=== PATIENT | female | born 1950 | race American Indian/Alaskan Native ===

== ENCOUNTER 2018-07-10 08:27 | Emergency (ER) | payer OTHER ==
[~2018-07-10 08:27] MED LIST: Iopamidol 612 MG/ML 100 ML Bottle IVPUSH ONE
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
[2018-07-10 08:30] LABS: ANION GAP 13.4; CHLORIDE,CL 106 mmol/L (101-111); SODIUM,NA 139 mmol/L (135-145)
[2018-07-10] MEDS ORDERED: MVI, Adult with Vitamin K 10 ML, Folic Acid 1 MG, Thiamine 100 MG in Lactated Ringers 1... IV ONE ×4 (08:36)
[2018-07-10] MEDS ORDERED: Acetaminophen 325 MG Tab PO ONE (09:44)
--- NOTE | 2018-07-12 16:28 | EKG ---
07/10/2018 - MELVINA BRIONES - TIME: 8:00 a.m. FINDINGS: Sinus rhythm at 83, borderline T-wave abnormalities. [facility] /[id number]
== END 2018-07-10 10:18 | disposition home or self-care (01) ==
LOC: DL.ED 08:27
DX: S22.32XA Fracture of one rib, left side, initial encounter for closed fracture (principal); F10.129 Alcohol abuse with intoxication, unspecified; I10 Essential (primary) hypertension; J44.9 Chronic obstructive pulmonary disease, unspecified; K21.9 Gastro-esophageal reflux disease without esophagitis; N18.9 Chronic kidney disease, unspecified; E11.22 Type 2 diabetes mellitus with diabetic chronic kidney disease; V87.7XXA Person injured in collision between other specified motor vehicles (traffic), initial encounter; Y90.8 Blood alcohol level of 240 mg/100 ml or more; Z79.899 Other long term (current) drug therapy; Z79.82 Long term (current) use of aspirin; V47.6XXA Car passenger injured in collision with fixed or stationary object in traffic accident, initial encounter; Z88.6 Allergy status to analgesic agent; Z88.5 Allergy status to narcotic agent; Z88.0 Allergy status to penicillin
CPT/HCPCS: 36415; 70450; 71260; 72125; 74177; 80053; 80305; 81001; 84484; 85025; 96365; 99285; A9270; G0480; J3411; J7120; Q9967; J3490

== ENCOUNTER 2019-01-15 20:37 | Emergency (ER) | payer MEDICAID, OTHER ==
[2019-01-15 20:49] VITALS: BP 137/77
--- NOTE | 2019-01-15 21:08 | EDM.PDOC ---
ED HPI GENERAL MEDICAL PROBLEM - General Chief Complaint: Respiratory Problem Stated Complaint: SINUS HEADACHE Time Seen by Provider: 01/15/19 21:00 Source of Information: Reports: Patient History Limitations: Reports: No Limitations - History of Present Illness INITIAL COMMENTS - FREE TEXT/NARRATIVE: c/o sinus headache cough x one month. C/o hands feel swollen eyes puffy and watery. Left shoulder pain from pinched nerve. Pain positional. Treatments MATCH MARKER: Reports: Acetaminophen, NSAIDS Left Shoulder Pain Score (Numeric/FACES): 5 - Related Data Allergies Allergy/AdvReac Type Severity Reaction Status Date / Time ibuprofen Allergy Renal Verified 01/15/19 21:28 Insufficiency morphine Allergy Vomiting Verified 01/15/19 21:28 Penicillins Allergy Dizziness Verified 01/15/19 21:28 Home Meds: Home Meds Albuterol [Proventil HFA] 2 inh INH QID PRN 12/09/13 [History] Albuterol/Ipratropium [Combivent Respimat] 1 inh INH QID PRN 12/09/13 [History] Aspirin [Halfprin] 81 mg PO DAILY 12/09/13 [History] Fenofibric Acid (Choline) [Fenofibric Acid] 135 mg PO DAILY 12/09/13 [History] Levothyroxine Sodium [Levoxyl] 0.15 mg PO DAILY 12/09/13 [History] Lisinopril [Prinivil] 5 mg PO DAILY 12/09/13 [History] Omeprazole 20 mg PO DAILY 12/09/13 [History] atorvaSTATin Calcium [Atorvastatin Calcium] 40 mg PO DAILY 12/09/13 [History] Cyclobenzaprine [Flexeril] 10 mg PO TID PRN 04/06/14 [History] Loratadine [Claritin] 10 mg PO DAILY PRN 04/06/14 [History] Baclofen 1 tab PO BID 12/13/16 [History] traZODone HCl [Trazodone HCl] 100 mg PO BEDTIME PRN 12/13/16 [History] Past Medical History Cardiovascular History: Reports: High Cholesterol, Hypertension Respiratory History: Reports: COPD Gastrointestinal History: Reports: GERD Genitourinary History: Reports: Chronic Renal Insuffiency Musculoskeletal History: Reports: Arthritis, Back Pain, Chronic Endocrine/Metabolic History: Reports: Diabetes, Type II Social & Family History - Tobacco Use Smoking Status *Q: Current Some Day Smoker Years of Tobacco use: 30 Packs/Tins Daily: 0.1 - Caffeine Use Caffeine Use: Reports: Coffee - Recreational Drug Use Recreational Drug Use: No - Living Situation & Occupation Living situation: Reports: with Family ED ROS GENERAL - Review of Systems Review Of Systems: ROS reveals no pertinent complaints other than HPI. Constitutional: Reports: No Symptoms HEENT: Reports: Rhinitis (sometimes), Sinus Problem. Denies: Ear Pain, Throat Pain Respiratory: Reports: Cough (white to green phlegm) Cardiovascular: Reports: Edema (eyes, hands). Denies: Chest Pain GI/Abdominal: Reports: No Symptoms : Reports: No Symptoms Musculoskeletal: Reports: Shoulder Pain Skin: Reports: No Symptoms Neurological: Reports: No Symptoms ED EXAM, GENERAL - Physical Exam Exam: See Below Exam Limited By: No Limitations General Appearance: Alert, No Apparent Distress Eye Exam: Bilateral Eye: PERRL (lower lids edematous, scant tearing) Ears: Normal External Exam, Normal TMs Nose: Normal Inspection, Normal Mucosa Throat/Mouth: Normal Inspection Head: Atraumatic, Normocephalic Neck: Normal Inspection Respiratory/Chest: No Respiratory Distress, Lungs Clear, Normal Breath Sounds. No: Decreased Breath Sounds, Crackles, Rales, Rhonchi, Wheezing Cardiovascular: Normal Peripheral Pulses, Regular Rate, Rhythm, No Edema (no bovious edema to hands, no edema lower extremities) GI/Abdominal: Normal Bowel Sounds Extremities: Normal Range of Motion. No: Joint Swelling (point tenderness left glenoid fossa) Neurological: Alert, Oriented, Normal Cognition, Normal Gait Psychiatric: Normal Affect, Normal Mood Skin Exam: Warm, Dry, Intact, Normal Color Course - Vital Signs Last Recorded V/S: Last Vital Signs Temp 97.3 F 01/15/19 20:40 Pulse 77 01/15/19 20:40 Resp 19 01/15/19 20:40 BP 137/77 01/15/19 20:40 Pulse Ox 96 01/15/19 20:40 - Orders/Labs/Meds Labs: Laboratory Tests 01/15/19 01/15/19 Range/Units 21:47 21:47 WBC 5.9 (5.0-10.0) 10^3/uL RBC 4.25 (4.2-5.4) 10^6/uL Hgb 13.4 (12.0-16.0) g/dL Hct 40.3 (37.0-47.0) % MCV 94.8 D (80-100) fL MCH 31.5 (27.0-34.0) pg MCHC 33.3 (33.0-35.0) g/dL Plt Count 232 (150-450) 10^3/uL Neut % (Auto) 50.1 (42.2-75.2) % Lymph % (Auto) 38.4 (20.5-50.1) % [place] % (Auto) 5.7 (2-8) % Eos % (Auto) 5.1 H (1.0-3.0) % Baso % (Auto) 0.7 (0.0-1.0) % Sodium 137 (135-145) mmol/L Potassium 3.8 (3.6-5.0) mmol/L Chloride 101 (101-111) mmol/L Carbon Dioxide 25.0 (21.0-31.0) mmol/L Anion Gap 14.8 BUN 16 (7-18) mg/dL Creatinine 1.2 (0.6-1.3) mg/dL Est Cr Clr Drug Dosing 45.89 mL/min Estimated GFR (MDRD) 45 BUN/Creatinine Ratio 13.33 Glucose 105 (74-105) mg/dL Calcium 9.7 (8.4-10.2) mg/dl Total Bilirubin 0.9 (0.2-1.0) mg/dL AST 45 H (10-42) IU/L ALT 38 (10-60) IU/L Alkaline Phosphatase 64 (42-121) IU/L B-Natriuretic Peptide 7 (0-100) pg/ml Total Protein 7.9 (6.7-8.2) g/dl Albumin 4.2 (3.2-5.5) g/dl Globulin 3.7 Albumin/Globulin Ratio 1.14 Departure - Departure Time of Disposition: 22:38 Disposition: Home, Self-Care 01 Condition: Good Clinical Impression: Chronic left shoulder pain URI (upper respiratory infection) Qualifiers: URI type: unspecified viral URI Qualified Code(s): J06.9 - Acute upper respiratory infection, unspecified COPD (chronic obstructive pulmonary disease) Qualifiers: COPD type: unspecified COPD Qualified Code(s): J44.9 - Chronic obstructive pulmonary disease, unspecified - Discharge Information *PRESCRIPTION DRUG MONITORING PROGRAM REVIEWED*: Not Applicable *COPY OF PRESCRIPTION DRUG MONITORING REPORT IN PATIENT JAIME: Not Applicable Instructions: Edema, Upper Respiratory Infection, Adult, [id number] Forms: ED Department Discharge Additional Instructions: limit salt and sodium intake tylenol 650mg every 6 hours as needed for discomfort clinic follow up this week humidification loratiadine 10mg one daily as needed
[2019-01-15 22:19] LABS: ANION GAP 14.8
== END 2019-01-15 22:45 | disposition home or self-care (01) ==
LOC: DL.ED 20:37
DX: J06.9 Acute upper respiratory infection, unspecified (principal); J44.9 Chronic obstructive pulmonary disease, unspecified; M25.512 Pain in left shoulder; G89.29 Other chronic pain; I12.9 Hypertensive chronic kidney disease with stage 1 through stage 4 chronic kidney disease, or unspecified chronic kidney disease; E11.22 Type 2 diabetes mellitus with diabetic chronic kidney disease; N18.9 Chronic kidney disease, unspecified; K21.9 Gastro-esophageal reflux disease without esophagitis; F17.210 Nicotine dependence, cigarettes, uncomplicated; Z79.899 Other long term (current) drug therapy; Z79.82 Long term (current) use of aspirin; Z88.5 Allergy status to narcotic agent; Z88.6 Allergy status to analgesic agent; Z88.0 Allergy status to penicillin
CPT/HCPCS: 36415; 80053; 83880; 85025; 99283

== ENCOUNTER 2023-12-21 17:26 | Inpatient (IN) | payer OTHER ==
[2023-12-21] MEDS: Sodium Chloride 0.9% 10 ML Syringe FLUSH PRN (19:38)
[2023-12-21 19:50] LABS: BASOPHILS PERCENT AUTO 0.1 % (0.0-1.0); HEMOGLOBIN 14.5 g/dL (12.0-16.0); LYMPHOCYTES PERCENT AUTO 7.2 % (20.5-50.1); MEAN CORPUSCULAR HEMOGLOBIN 29.6 pg (27.0-34.0); MEAN CORPUSCULAR HGB CONC 32.2 g/dL (33.0-35.0); MEAN CORPUSCULAR VOLUME 91.8 fL (80-100); MONOCYTES PERCENT AUTO 3.9 % (2-8); NEUTROPHILS PERCENT AUTO 88.8 % (42.2-75.2); PLATELET COUNT,PLT 241 10^3/uL (150-450); WHITE BLOOD CELL COUNT,WBC 14.5 10^3/uL (5.0-10.0)
[2023-12-21] MEDS: Ketorolac 30 MG/ML SDV IVPUSH ONE (19:50)
[2023-12-21] MEDS: Sodium Chloride 0.9% 1,000 ML IV ONE (19:50)
[2023-12-21] MEDS: Acetaminophen 500 MG Tab PO ONE (19:53)
[2023-12-21 20:07] LABS: A/G RATIO 0.7; ALANINE AMINOTRANSFERASE,ALT 16 U/L (14-59); ALBUMIN 3.4 g/dL (3.4-5.0); ALKALINE PHOSPHATASE 89 U/L (46-116); ANION GAP 15.8 mEq/L (7-13); ASPARTATE AMNIOTRANSFERASE,AST 16 U/L (15-37); BILIRUBIN TOTAL 0.5 mg/dL (0.2-1.0); BLOOD UREA NITROGEN,BUN 16 mg/dL (7-18); BUN/CREATININE RATIO 10.8 (No establ ref range); CALCIUM 9.4 mg/dL (8.5-10.1); CARBON DIOXIDE,CO2 23 mmol/L (21-32); CHLORIDE,CL 99 mmol/L (98-107); CREATININE 1.48 mg/dL (0.55-1.02); EST CRCL DRUG DOSING (CG) 34.66 mL/min; GLUCOSE RANDOM 188 mg/dL (70-99); MAGNESIUM 1.7 mg/dL (1.8-2.4); POTASSIUM,K 3.8 mmol/L (3.5-5.1); PROTEIN TOTAL,TP 8.5 g/dL (6.4-8.2); SODIUM,NA 134 mmol/L (136-145)
[2023-12-21 20:10] LABS: LACTIC ACID 1.8 mmol/L (0.4-2.0)
[2023-12-21 20:15] LABS: ESTIMATED GFR 37 mL/min (>=60)
[2023-12-21 20:16] LABS: C-REACTIVE PROTEIN > 25.00 ng/dL (<=0.50)
[2023-12-21 20:54] LABS: CORONAVIRUS COVID-19 NAA NEGATIVE (NEGATIVE); INFLUENZA A NAA NEGATIVE (NEGATIVE); INFLUENZA B NAA NEGATIVE (NEGATIVE); RESPIRATORY SYNCYTIAL VIR NAA NEGATIVE (NEGATIVE)
[2023-12-21] MEDS: Magnesium Sulfate/Water 2 GM in Premix Bag 1 BAG IV ONE (20:59)
[2023-12-21] MEDS: cefTRIAXone 2 GM Vial IVPUSH ONE (21:27)
[2023-12-21] MEDS ORDERED: hydrALAZINE 20 MG/ML SDV IVPUSH PRN (21:46)
[2023-12-21] MEDS ORDERED: Metoprolol Tartrate 5 MG/5 ML SDV IVPUSH PRN (21:46)
[2023-12-21] MEDS ORDERED: Ketorolac 30 MG/ML SDV IVPUSH PRN (21:47)
[2023-12-21] MEDS ORDERED: Albuterol/Ipratropium 3.0-0.5 MG/3 ML Neb Soln NEB PRN (21:54)
[2023-12-21] MEDS ORDERED: Ondansetron 4 MG/2 ML SDV IVPUSH PRN (21:54)
[2023-12-21] MEDS ORDERED: Sennosides/Docusate Sodium 50-8.6 MG Tab PO PRN (21:54)
[2023-12-21] MEDS ORDERED: Magnesium Hydroxide 400 MG/5 ML Susp 30 ML Cup PO PRN (21:54)
[2023-12-21] MEDS ORDERED: Polyethylene Glycol 3350 Powder 17 GM Packet PO PRN (21:54)
[2023-12-21] MEDS ORDERED: Naloxone 2 MG/2 ML Syringe IVPUSH PRN (21:54)
[2023-12-21] MEDS ORDERED: Loratadine 10 MG Tab PO PRN (22:00)
[2023-12-21] MEDS ORDERED: Baclofen 10 MG Tab PO PRN (22:01)
[2023-12-21] MEDS: Azithromycin 500 MG in Sodium Chloride 0.9% 250 ML IV ONE (22:04)
[2023-12-21] MEDS ORDERED: Glucagon,Human Recombinant 1 MG Vial IM PRN (22:06)
[2023-12-21] MEDS ORDERED: 50% Dextrose in Water 50 ML Syringe IVPUSH PRN (22:06)
[2023-12-21] MEDS: methylPREDNISolone Sodium Succinate 125 MG/2 ML SDV IVPUSH ONE (22:10)
[2023-12-21] MEDS: Pantoprazole 40 MG Vial IVPUSH ONE (22:10)
[2023-12-21] MEDS: Sodium Chloride 0.9% 1,000 ML IV SCH (22:30)
[2023-12-21] MEDS ORDERED: Oxymetazoline 0.05% Nasal Spray 30 ML Bottle NAS PRN (22:37)
[2023-12-21 22:38] LABS: T4 FREE 0.83 ng/dL (0.76-1.46); TSH ULTRASENSITIVE 12.17 uIU/mL (0.36-3.74)
[2023-12-21] MEDS: Aspirin 325 MG Tab PO ONE (22:45)
[2023-12-21] MEDS: Nicotine 14 MG/24 Hr Patch TRDERM ONE (22:45)
[2023-12-21] MEDS: Acetaminophen/Butalbital/Caffeine 325-50-40 MG Tab PO ONE (22:45)
[2023-12-21 22:50] LABS: HEMOGLOBIN A1C 6.8 % (<5.7)
[2023-12-21] MEDS: guaiFENesin/Dextromethorphan 100-10 MG/5 ML Soln 5 ML Cup PO PRN (23:00)
[2023-12-21] MEDS: Melatonin 3 MG Tab PO PRN (23:00)
[2023-12-21] MEDS: HYDROmorphone 0.5 MG/0.5 ML Syringe IVPUSH PRN (23:00)
[2023-12-21 23:26] LABS: APPEARANCE,URINE CLEAR (CLEAR); BILIRUBIN,URINE SMALL (NEGATIVE); COLOR,URINE DARK YELLOW (YELLOW); GLUCOSE,URINE NEGATIVE (NEGATIVE); KETONES,URINE TRACE (NEGATIVE); LEUKOCYTE ESTERASE,URINE NEGATIVE (NEGATIVE); NITRITE,URINE NEGATIVE (NEGATIVE); OCCULT BLOOD,URINE NEGATIVE (NEGATIVE); PH,URINE 5.5 (5.0-9.0); PROTEIN,URINE 100 (NEGATIVE)
[2023-12-21 23:37] LABS: BACTERIA,URINE MODERATE /HPF (0-FEW/HPF); EPITHELIAL CELLS,URINE MODERATE /HPF (NOT SEEN); RBC,URINE 0-5 /HPF (0-5); WBC,URINE 0-5 /HPF (0-5/HPF)
[2023-12-21 23:38] LABS: AMORPHOUS SEDIMENT,URINE MODERATE /HPF (NOT SEEN); FINE GRANULAR CASTS,URINE RARE /LPF (NOT SEEN); HYALINE CASTS,URINE RARE; MUCUS,URINE MODERATE /LPF (NOT SEEN)
[2023-12-22] MEDS: Magnesium Sulfate/Water 2 GM in Premix Bag 1 BAG IV SCH (00:32)
[2023-12-22] MEDS ORDERED: Acetaminophen/Butalbital/Caffeine 325-50-40 MG Tab PO PRN (06:00)
[2023-12-22] MEDS: Insulin Lispro 100 Units/ML 3 ML Vial SUBCUT SCH (10:01)
[2023-12-22] MEDS: Acetaminophen 325 MG Tab PO PRN (10:03)
[2023-12-22] MEDS: guaiFENesin 600 MG Tab.ER PO SCH (10:03)
[2023-12-22] MEDS: Saccharomyces Boulardii (Probiotic) 250 MG Cap PO SCH (10:03)
[2023-12-22] MEDS: Aspirin 81 MG Tab.EC PO SCH (10:03)
[2023-12-22] MEDS: Azithromycin 500 MG in Sodium Chloride 0.9% 250 ML IV SCH (10:04)
[2023-12-22] MEDS: cefTRIAXone 2 GM Vial IVPUSH SCH (10:05)
[2023-12-22] MEDS: methylPREDNISolone Sodium Succinate 125 MG/2 ML SDV ONE (10:19)
[2023-12-22] MEDS: Tiotropium Bromide 4 GM Inhalation Spray (2.5mcg/1 dose; 10 doses) INH SCH (10:20)
[2023-12-22] MEDS: Pantoprazole 40 MG Tab.CR PO SCH (10:20)
[2023-12-22] MEDS: methylPREDNISolone Sodium Succinate 40 MG/1 ML SDV IVPUSH SCH (10:20)
[2023-12-22] MEDS: Formoterol/Mometasone 100-5 MCG 8.8 GM Inhaler IH SCH (10:20)
[2023-12-22] MEDS: Levothyroxine 150 MCG Tab PO SCH (10:20)
[2023-12-22 11:07] LABS: ALBUMIN 2.8 g/dL (3.4-5.0); BILIRUBIN TOTAL 0.3 mg/dL (0.2-1.0); CALCIUM 8.9 mg/dL (8.5-10.1); CREATININE 1.71 mg/dL (0.55-1.02); PROTEIN TOTAL,TP 7.4 g/dL (6.4-8.2)
[2023-12-22 11:08] LABS: A/G RATIO 0.61; C-REACTIVE PROTEIN 25.08 ng/dL (<=0.50)
[2023-12-22 11:41] LABS: BASOPHILS PERCENT AUTO 0.1 % (0.0-1.0); HEMATOCRIT 39.6 % (37.0-47.0); HEMOGLOBIN 12.9 g/dL (12.0-16.0); LYMPHOCYTES PERCENT AUTO 5.6 % (20.5-50.1); MEAN CORPUSCULAR HEMOGLOBIN 30.3 pg (27.0-34.0); MEAN CORPUSCULAR HGB CONC 32.6 g/dL (33.0-35.0); MONOCYTES PERCENT AUTO 1.9 % (2-8); NEUTROPHILS PERCENT AUTO 92.4 % (42.2-75.2); PLATELET COUNT,PLT 229 10^3/uL (150-450); RED BLOOD CELL COUNT 4.26 10^6/uL (4.2-5.4); WHITE BLOOD CELL COUNT,WBC 14.9 10^3/uL (5.0-10.0)
[2023-12-22] MEDS ORDERED: Capsaicin 0.025% Crm 60 GM Tube TOP PRN (12:36)
[2023-12-22] MEDS ORDERED: Haloperidol Lactate 5 MG/ML SDV IVPUSH PRN (12:37)
[2023-12-22] MEDS: Nicotine 14 MG/24 Hr Patch TRDERM SCH (20:38)
[2023-12-22] MEDS: traMADol 50 MG Tab PO PRN (22:21)
[2023-12-23] MEDS: traZODone 50 MG Tab PO PRN (02:06)
[2023-12-23 06:53] LABS: BASOPHILS PERCENT AUTO 0.1 % (0.0-1.0); HEMATOCRIT 35.2 % (37.0-47.0); HEMOGLOBIN 11.4 g/dL (12.0-16.0); LYMPHOCYTES PERCENT AUTO 4.2 % (20.5-50.1); MEAN CORPUSCULAR HEMOGLOBIN 29.8 pg (27.0-34.0); MEAN CORPUSCULAR HGB CONC 32.4 g/dL (33.0-35.0); MEAN CORPUSCULAR VOLUME 92.1 fL (80-100); MONOCYTES PERCENT AUTO 3.3 % (2-8); NEUTROPHILS PERCENT AUTO 92.4 % (42.2-75.2); PLATELET COUNT,PLT 250 10^3/uL (150-450); RED BLOOD CELL COUNT 3.82 10^6/uL (4.2-5.4); WHITE BLOOD CELL COUNT,WBC 18.2 10^3/uL (5.0-10.0)
[2023-12-23 07:20] LABS: ALBUMIN 2.4 g/dL (3.4-5.0); ANION GAP 13.2 mEq/L (7-13); BILIRUBIN TOTAL 0.2 mg/dL (0.2-1.0); BUN/CREATININE RATIO 18.5 (No establ ref range); C-REACTIVE PROTEIN 11.85 ng/dL (<=0.50); CALCIUM 8.5 mg/dL (8.5-10.1); CREATININE 1.08 mg/dL (0.55-1.02); EST CRCL DRUG DOSING (CG) 47.5 mL/min; POTASSIUM,K 4.2 mmol/L (3.5-5.1); PROTEIN TOTAL,TP 6.8 g/dL (6.4-8.2)
[2023-12-23 07:22] LABS: A/G RATIO 0.55
[2023-12-23] MEDS: Lisinopril 5 MG Tab PO SCH (09:59)
[2023-12-23] MEDS ORDERED: Midodrine 5 MG Tab PO PRN (11:26)
[2023-12-23] MEDS: glipiZIDE 5 MG Tab PO ONE (14:18)
[2023-12-23] MEDS: glipiZIDE 5 MG Tab PO SCH ×2 (19:37→20:37)
[2023-12-23] MEDS: hydrOXYzine HCl 25 MG Tab PO PRN (20:37)
[2023-12-23] MEDS: Sodium Chloride 0.65% Nasal Spray 45 ML Bottle NAS SCH (20:37)
[2023-12-23] MEDS ORDERED: glipiZIDE 2.5 MG Tab.ER PO SCH (21:00)
[2023-12-24 06:30] LABS: HEMATOCRIT 35.2 % (37.0-47.0); HEMOGLOBIN 11.5 g/dL (12.0-16.0); MEAN CORPUSCULAR HEMOGLOBIN 29.8 pg (27.0-34.0); MEAN CORPUSCULAR HGB CONC 32.7 g/dL (33.0-35.0); MEAN CORPUSCULAR VOLUME 91.2 fL (80-100); PLATELET COUNT,PLT 260 10^3/uL (150-450); RED BLOOD CELL COUNT 3.86 10^6/uL (4.2-5.4); WHITE BLOOD CELL COUNT,WBC 14.3 10^3/uL (5.0-10.0)
[2023-12-24 06:40] LABS: BASOPHILS PERCENT AUTO 0.1 % (0.0-1.0); MONOCYTES PERCENT AUTO 4.3 % (2-8); NEUTROPHILS PERCENT AUTO 88.6 % (42.2-75.2)
[2023-12-24 06:51] LABS: ALBUMIN 2.4 g/dL (3.4-5.0); ANION GAP 11.1 mEq/L (7-13); BILIRUBIN TOTAL 0.2 mg/dL (0.2-1.0); C-REACTIVE PROTEIN 5.51 ng/dL (<=0.50); CALCIUM 8.9 mg/dL (8.5-10.1); EST CRCL DRUG DOSING (CG) 51.3 mL/min; POTASSIUM,K 4.1 mmol/L (3.5-5.1); PROTEIN TOTAL,TP 6.6 g/dL (6.4-8.2)
[2023-12-24 06:56] LABS: A/G RATIO 0.57
[2023-12-24 07:09] LABS: SEG NEUTROPHILS PERCENT MAN 87 % (42-75)
[2023-12-24 07:10] LABS: LYMPHOCYTES PERCENT MAN 7 % (20-50); MONOCYTES PERCENT MAN 5 % (2-8)
[2023-12-24 07:13] LABS: BAND PERCENT MAN 1 %
[2023-12-24] MEDS ORDERED: glipiZIDE 2.5 MG Tab.ER PO ONE ×2 (09:32→12:00)
[2023-12-24] MEDS: methylPREDNISolone Sodium Succinate 40 MG/1 ML SDV IVPUSH SCH (13:56)
[2023-12-25 06:21] LABS: BASOPHILS PERCENT AUTO 0.1 % (0.0-1.0); HEMATOCRIT 35.5 % (37.0-47.0); HEMOGLOBIN 11.4 g/dL (12.0-16.0); LYMPHOCYTES PERCENT AUTO 9.6 % (20.5-50.1); MEAN CORPUSCULAR HEMOGLOBIN 29.4 pg (27.0-34.0); MEAN CORPUSCULAR HGB CONC 32.1 g/dL (33.0-35.0); MEAN CORPUSCULAR VOLUME 91.5 fL (80-100); MONOCYTES PERCENT AUTO 5.6 % (2-8); NEUTROPHILS PERCENT AUTO 84.7 % (42.2-75.2); PLATELET COUNT,PLT 274 10^3/uL (150-450); RED BLOOD CELL COUNT 3.88 10^6/uL (4.2-5.4)
[2023-12-25 06:44] LABS: A/G RATIO 0.61; ALBUMIN 2.5 g/dL (3.4-5.0); ANION GAP 6.1 mEq/L (7-13); BILIRUBIN TOTAL 0.2 mg/dL (0.2-1.0); BUN/CREATININE RATIO 22.1 (No establ ref range); C-REACTIVE PROTEIN 2.6 ng/dL (<=0.50); CALCIUM 8.8 mg/dL (8.5-10.1); CREATININE 0.95 mg/dL (0.55-1.02); MAGNESIUM 1.9 mg/dL (1.8-2.4); POTASSIUM,K 4.1 mmol/L (3.5-5.1); PROTEIN TOTAL,TP 6.6 g/dL (6.4-8.2)
[2023-12-25 07:43] VITALS: BP 143/62; PULSE 70
[2023-12-25] MEDS: FLU (Fluad Quad) 2023-24(65UP)/MF59C/PF 60 MCG/0.5 ML Syringe IM ONE (09:27)
== END 2023-12-25 10:58 | disposition home or self-care (01) | DRG 871 ==
LOC: DL.ED 17:26 → DL.MS 21:11
PROVIDERS: ADMIT Internal Medicine; ATTEND Internal Medicine
DX: A41.9 Sepsis, unspecified organism (principal); R09.02 Hypoxemia; R53.1 Weakness; I21.A1 Myocardial infarction type 2; J18.9 Pneumonia, unspecified organism; J44.0 Chronic obstructive pulmonary disease with (acute) lower respiratory infection; J44.9 Chronic obstructive pulmonary disease, unspecified; E11.9 Type 2 diabetes mellitus without complications; J44.1 Chronic obstructive pulmonary disease with (acute) exacerbation; E87.1 Hypo-osmolality and hyponatremia; I12.9 Hypertensive chronic kidney disease with stage 1 through stage 4 chronic kidney disease, or unspecified chronic kidney disease; E11.22 Type 2 diabetes mellitus with diabetic chronic kidney disease; N18.30 Chronic kidney disease, stage 3 unspecified; E03.9 Hypothyroidism, unspecified; K21.9 Gastro-esophageal reflux disease without esophagitis; E66.9 Obesity, unspecified; I10 Essential (primary) hypertension; M19.90 Unspecified osteoarthritis, unspecified site; D72.829 Elevated white blood cell count, unspecified; E11.65 Type 2 diabetes mellitus with hyperglycemia; G47.00 Insomnia, unspecified; E83.42 Hypomagnesemia; E11.43 Type 2 diabetes mellitus with diabetic autonomic (poly)neuropathy; E78.00 Pure hypercholesterolemia, unspecified; K31.84 Gastroparesis; Z88.5 Allergy status to narcotic agent; Z88.0 Allergy status to penicillin; Z88.6 Allergy status to analgesic agent; Z79.82 Long term (current) use of aspirin; Z79.4 Long term (current) use of insulin; Z87.891 Personal history of nicotine dependence; Z79.84 Long term (current) use of oral hypoglycemic drugs; Z79.890 Hormone replacement therapy; Z79.899 Other long term (current) drug therapy; Z11.52 Encounter for screening for COVID-19; Z68.34 Body mass index [BMI] 34.0-34.9, adult; Z99.89 Dependence on other enabling machines and devices; Z99.81 Dependence on supplemental oxygen
CPT/HCPCS: 0241U; 36415; 70450; 70486; 71045; 71046; 76770; 80053; 80061; 81001; 82306; 82947; 83036; 83605; 83735; 84145; 84439; 84443; 84484; 85025; 86140; 87040; 87070; 87205; 90471; 90694; 93005; 94010; 94060; 94664; 94667; 94668; 94760; 97161; 97165; 99284; 99223; 99232; 99233; 99238; A9270-GY; C9113; G0008; J0456; J0696; J1170; J1815-GY; J1885; J2920; J2930; J3475; J3490; J7030; J7050